=== PATIENT | male | born 1995 | race Two or more races ===

== ENCOUNTER 2019-01-30 14:43 | Emergency (ER) | payer OTHER ==
[~2019-01-30] VITALS: Ht 185.4 cm; Wt 83.0 kg
[2019-01-30 14:55] VITALS: BP 123/84
[2019-01-30] MEDS ORDERED: LIDOCAINE 1%-EPI 1:100,000 20 ML VIAL ONE (15:19)
--- NOTE | 2019-01-30 15:25 | NUR ---
SEEN AND EXMAINED BY ROYA MOCTEZUMA.
--- NOTE | 2019-01-30 15:27 | NUR ---
SUTURING KIT SET UP AT BEDSIDE.
[2019-01-30] MEDS ORDERED: LIDOCAINE 1%-EPI 1:100,000 20 ML VIAL TP ONE (15:30)
[2019-01-30] MEDS ORDERED: ACETAMINOPHEN 325 MG TABLET PO ONE (17:00)
[2019-01-30] MEDS ORDERED: ACETAMINOPHEN ES 500 MG TABLET ONE (17:08)
--- NOTE | 2019-01-30 17:14 | NUR ---
PATIENT RECEIVED STITCHES. Patient discharged to home in stable condition. Written and verbal after care instructions given. Patient verbalizes understanding of instruction. Ambulatory with a steady gait.
== END 2019-01-30 17:16 | disposition home or self-care (01) ==
LOC: ER 14:47
DX: S01.81XA Laceration without foreign body of other part of head, initial encounter (principal); S01.21XA Laceration without foreign body of nose, initial encounter; W22.8XXA Striking against or struck by other objects, initial encounter; Y93.11 Activity, swimming; Y92.34 Swimming pool (public) as the place of occurrence of the external cause; Y99.8 Other external cause status
CPT/HCPCS: 12013; 99284; A6403 ×2; J3490